=== PATIENT | male | born 1985 | race Caucasian/White ===

== ENCOUNTER 2022-10-25 23:57 | Emergency (ER) | payer OTHER ==
[~2022-10-25] VITALS: Ht 175.3 cm; Wt 91.0 kg
[2022-10-26 01:10] LABS: CLARITY URINE CLOUDY (CLEAR); COLOR URINE YELLOW (YELLOW); KETONES URINE TRACE (NEGATIVE); LEUKOCYTE ESTERASE URINE 2+ (NEGATIVE); NITRITE URINE NEGATIVE (NEGATIVE); OCCULT BLOOD URINE TRACE (NEGATIVE); PH URINE 5.5 (4.5-8.0); PROTEIN URINE NEGATIVE (NEGATIVE); SPECIFIC GRAVITY URINE 1.029 (1.005-1.030); UROBILINOGEN URINE 0.2 E.U./dL (0.2-1.0)
[2022-10-26] MEDS ORDERED: CEFTRIAXONE SODIUM 500 MG/VIAL IM ONE (02:45)
[2022-10-26] MEDS ORDERED: LIDOCAINE HCL/PF 1% 10 MG/ML 5ML VIAL INFIL ONE (02:45)
[2022-10-26] MEDS ORDERED: DOXY100C5 MT (02:51)
[2022-10-26 03:15] VITALS: BP 146/95
== END 2022-10-26 03:25 | disposition home or self-care (01) ==
LOC: ER 23:57
DX: A54.01 Gonococcal cystitis and urethritis, unspecified (principal)
CPT/HCPCS: 81003; 87086; 96372; 99283; J0696; J3490

== ENCOUNTER 2025-08-05 23:37 | Emergency (ER) | payer SELFPAY ==
[~2025-08-05] VITALS: Ht 175.3 cm; Wt 91.0 kg
[~2025-08-05 23:37] MED LIST: DOXY100C5 MT
[2025-08-05 23:54] VITALS: O2SAT 98
[2025-08-06 00:24] LABS: CLARITY URINE CLOUDY (CLEAR); COLOR URINE DARK YELLOW (YELLOW); GLUCOSE URINE NEGATIVE (NEGATIVE); KETONES URINE TRACE (NEGATIVE); LEUKOCYTE ESTERASE URINE 3+ (NEGATIVE); NITRITE URINE NEGATIVE (NEGATIVE); OCCULT BLOOD URINE 1+ (NEGATIVE); PH URINE 5.5 (4.5-8.0); PROTEIN URINE 1+ (NEGATIVE); SPECIFIC GRAVITY URINE 1.032 (1.005-1.030); UROBILINOGEN URINE 1.0 E.U./dL (0.2-1.0)
[2025-08-06] MEDS: CEFTRIAXONE SODIUM 500MG VIAL IM ONE (01:13)
[2025-08-06 01:15] VITALS: TEMP 36.7
[2025-08-06] MEDS ORDERED: CEPH500C2 MT (01:48)
[2025-08-06] MEDS ORDERED: DOXY100C5 MT (01:48)
[2025-08-06 02:03] VITALS: BP 123/83; PULSE 89; RESP 14; O2SAT 99
[2025-08-06 02:06] LABS: BACTERIA URINE TRACE; SQUAMOUS EPITHELIAL CELL URINE FEW /lpf (RARE/1+); WBC URINE TNTC /hpf (0-2)
[2025-08-06 02:07] LABS: RBC URINE NONE SEEN /hpf (0-2)
[2025-08-08 06:08] LABS: CHLAMYDIA TRACHOMATIS NAA Negative (Negative); NEISSERIA GONORRHOEAE NAA Positive (Negative)
== END 2025-08-06 02:04 | disposition home or self-care (01) ==
LOC: ER 23:58
DX: R36.9 Urethral discharge, unspecified (principal); A64 Unspecified sexually transmitted disease; Z11.3 Encounter for screening for infections with a predominantly sexual mode of transmission
CPT/HCPCS: 99283; 87491; 87591; 81003; 87086; 96372; J0696